=== PATIENT | female | born 1940 | race Caucasian/White ===

== ENCOUNTER 2018-07-12 17:46 | Observation (INO) | payer MEDICARE, MEDICAID ==
[2018-07-12 19:33] LABS: Troponin I 0.011 ng/mL (< 0.028)
[2018-07-12 22:04] LABS: Troponin I 0.013 ng/mL (< 0.028)
[2018-07-12] MEDS ORDERED: rOPINIRole HCl 1 MG TAB PO SCH (22:45)
[2018-07-12] MEDS ORDERED: Gabapentin 100 MG CAP PO SCH (22:45)
[2018-07-12] MEDS ORDERED: Torsemide 20 MG TAB PO SCH (22:45)
[2018-07-12] MEDS: traMADol HCl 50 MG TAB PO PRN (22:58)
[2018-07-13 01:32] LABS: Troponin I Less than 0.010 ng/mL (< 0.028)
--- NOTE | 2018-07-13 04:11 | HP ---
CHIEF COMPLAINT: Chest tightness. HISTORY OF PRESENT ILLNESS: Ms. Fernandez is a pleasant 77-year-old woman, who presents with complaints of tightness in her chest that started at some point earlier today with shortness of breath. She states she has been experiencing orthopnea and increased short of breath with exertion. She has a history of congestive heart failure and states that she monitors her sodium and water intake closely. Has not had any increased sodium intake or water intake in the last few days, but has noted a weight gain from 314 to 341 pounds over the course of two weeks. She has noted increased abdominal girth and bilateral lower extremity edema. The patient suffers from chronic issues with cellulitis affecting the bilateral legs and has wounds on the left lower leg due to weeping from edema. She has noted in the last couple of nights, increased discomfort and itching in the lower legs. Denies having any hemoptysis. No nausea or vomiting. Denies any abdominal pain. No urinary symptoms or bowel changes. Of note, the patient is known to Dr. Guerrero. REVIEW OF SYSTEMS: All other review of systems are negative. PAST MEDICAL HISTORY: 1. Hypertension. 2. High cholesterol. 3. Hypothyroidism. 4. Diabetes. 5. Atrial fibrillation. 6. CHF. 7. Frozen right shoulder. 8. CKD. PAST SURGICAL HISTORY: 1. Bilateral cataract surgery. 2. Cholecystectomy. 3. Tubal ligation. SOCIAL HISTORY: The patient denies smoking. No alcohol use or illicit drug use. ALLERGIES: 1. CLINDAMYCIN. 2. DIPHENHYDRAMINE. 3. METHYLPHENIDATE. 4. PENICILLINS. 5. SULFA. CURRENT MEDICATIONS: 1. Cholecalciferol. 2. Fish oil. 3. Glimepiride. 4. Metformin. 5. Metoprolol. 6. Ondansetron. 7. MiraLAX. 8. Potassium chloride. 9. Docusate. 10. Gabapentin. 11. Levothyroxine. 12. Linaclotide. 13. Pravastatin. 14. Ropinirole. 15. Sitagliptin. 16. Spironolactone. 17. Tizanidine. 18. Torsemide. 19. Tramadol. 20. Warfarin. PHYSICAL EXAMINATION: GENERAL: The patient is obese and well developed. She is in no acute distress. VITAL SIGNS: Temperature 97.6, pulse 52, respirations 18, O2 saturation on room air, and blood pressure 103/53. HEENT: Normocephalic and atraumatic. Pupils are equal, round, and reactive to light. Sclerae without icterus. Oropharynx is clear. NECK: Supple. LUNGS: With decreased breath sounds bilaterally at the bases. No crackles or rales. CARDIAC: Regular rate and rhythm. ABDOMEN: Obese, soft, nondistended but increased abdominal girth as per patient. No edema. No guarding or rigidity. EXTREMITIES: Notable for bilateral lower leg edema with erythema, more prominent on the right lower leg than the left. No weeping at present. NEUROLOGIC: Alert and oriented x3. LABORATORY DATA: White blood count 5.4, hemoglobin 12.3, hematocrit 39.4, and platelets 167. Sodium 135, potassium 3.8, anion gap 14, BUN 24, creatinine 1.29, GFR 40, glucose 124, calcium 9.3, total bilirubin 0.7, AST 32, ALT 29, alkaline phosphatase 141, and CK 67. Troponin negative x3. BNP 209.6, albumin 3.7, and lipase 35. IMAGING DATA: Chest x-ray; heart enlarged. No clear vascular congestion or large effusion present. Lungs seem clear. IMPRESSION AND PLAN: Ms. Fernandez is a 77-year-old woman, who is being admitted for management of the following; 1. Chest tightness with shortness of breath. The patient with known history of congestive heart failure, who has noted significant increase in weight over the last 2 weeks with progressive increased abdominal girth and bilateral lower leg edema. Congestive heart failure exacerbation suspected. Chest x-ray clear and no evidence of rales on exam. Troponins are negative x3. BNP 209.6. Unclear when her last echocardiogram was. We will obtain an echo. We will resume her torsemide, which she takes at home, 60 mg by mouth twice daily. We will obtain a D-dimer. If elevated, have further imaging to rule out pulmonary embolism. Sats are . Continue to monitor. Heart rate normal. 2. Right lower leg cellulitis. The patient suffers from chronic infections with cellulitis. At present, she has bilateral lower leg edema, but the right leg appears more erythematous than the left. We will initiate antibiotics and continue to monitor. At present time, white count is normal and she is afebrile. We will add on lactic acid and procalcitonin to her laboratory studies. 3. Type 2 diabetes mellitus. We will resume home medications and monitor glucose. Initiate insulin sliding scale. 4. Hypertension. Resume home medications and monitor blood pressure. 5. Chronic atrial fibrillation. The patient on anticoagulation. We will resume home medications including Coreg. 6. Hypothyroidism. Resume home medications. 7. Gastrointestinal prophylaxis. 8. Deep venous thrombosis prophylaxis. The patient already on anticoagulation for atrial fibrillation. KELLIE hose stockings. 9. Full code status. Her surrogate decision maker is Blanca Fernandez, her daughter. The patient's case was discussed with Dr. Kamara, who agrees with plan of care as described above. Job ID: [id number]
[2018-07-13] MEDS: Vancomycin HCl 1.75 GM in Sodium Chloride 0.9% 500 ML IVPB SCH (04:51)
[2018-07-13] MEDS ORDERED: (Linaclotide [Linzess] 290 MCG) PO SCH (07:30)
[2018-07-13] MEDS: Spironolactone 25 MG TAB PO SCH (08:33)
[2018-07-13] MEDS: Docusate 100 MG CAP PO SCH (08:33)
[2018-07-13] MEDS: Alogliptin 25 MG TAB PO SCH (08:34)
[2018-07-13] MEDS: Gabapentin 100 MG CAP PO SCH ×2 (08:34→20:38)
[2018-07-13] MEDS: Levothyroxine Sodium 25 MCG TAB PO SCH (08:35)
[2018-07-13] MEDS: Torsemide 20 MG TAB PO SCH ×2 (08:36→20:36)
[2018-07-13] MEDS ORDERED: Vancomycin HCl 1 GM in Premix Bag 1 BAG IVPB SCH (09:00)
[2018-07-13] MEDS: traMADol HCl 50 MG TAB PO PRN (10:01)
[2018-07-13] MEDS: rOPINIRole HCl 1 MG TAB PO SCH ×2 (10:02→20:37)
--- NOTE | 2018-07-13 15:23 | NM ---
VQ SCAN: HISTORY: Bilateral lower extremity edema. Chest pain. Elevated D-dimer. RADIOPHARMACEUTICAL: 14.5 mCi Xenon 133 by inhalation for the ventilation study followed by the intravenous administration of 6 mCi Technetium 99m-MAA for the perfusion scan. COMPARISON: Correlation is made with the portable chest radiograph of the previous day. FINDINGS: Homogeneous tracer distribution is seen in the lung mahmood bilaterally on the ventilation perfusion s can without mismatched pleural-based wedge-shaped segmental or subsegmental perfusion defects. IMPRESSION: Normal exam. POS: OFF
[2018-07-13] MEDS: Acetaminophen 325 MG TAB PO PRN (16:31)
--- NOTE | 2018-07-13 16:49 | PDOC.PN ---
- Subjective Encounter Start Date: 07/13/18 Encounter Start Time: 16:46 Patient lying in bed, she reports feeling better. Denies any chest pain, palpitations, abdominal pain. Echo shows preserved EF. Patient claims she gained 30 pounds but looking at old records she was similar weight at last admission. - Objective MAR Reviewed: Yes Vital Signs & Weight: Vital Signs (12 hours) Temp Pulse Resp BP Pulse Ox 07/13/18 15:32 97.5 F L 70 16 125/59 L 98 07/13/18 11:32 97.3 F L 80 16 138/63 94 L 07/13/18 07:57 98.3 F 88 16 120/58 L 96 Weight Weight 339 lb I&O: 07/12/18 07/13/18 07/14/18 06:59 06:59 06:59 Output Total 1800 550 Balance -1800 -550 Additional Labs: Accuchecks 07/13/18 07/13/18 07/12/18 10:16 05:04 20:04 POC Glucose 102 90 130 H Radiology Reviewed by me: Yes Phys Exam - Physical Examination Constitutional: NAD HEENT: moist MMs, oral pharynx no lesions Neck: supple Respiratory: no wheezing, clear to auscultation bilateral Cardiovascular: RRR, no significant murmur Gastrointestinal: soft, positive bowel sounds Musculoskeletal: pulses present Lymphedema noted bilateral lower extremities Neurological: non-focal, moves all 4 limbs Psychiatric: normal affect, A&O x 3 Skin: normal turgor Dx/Plan (1) Lymphedema of both lower extremities Code(s): I89.0 - LYMPHEDEMA, NOT ELSEWHERE CLASSIFIED Status: Acute (2) Obese Code(s): E66.9 - OBESITY, UNSPECIFIED Status: Acute (3) DM (diabetes mellitus) type II, controlled, with peripheral vascular disorder Code(s): E11.51 - TYPE 2 DIABETES W DIABETIC PERIPHERAL ANGIOPATH W/O GANGRENE Status: Chronic (4) Venous insufficiency (chronic) (peripheral) Status: Chronic - Plan cont current plan of care * Wound care consulted for lymphedema * Echo shows preserved EF * Continue home medications * White count and vitals unremarkable * D-dimer slightly elevated, but VQ showing no PE * Monitor overnight and likely discharge tomorrow with continued wound care for chronic lymphedema
[2018-07-13] MEDS ORDERED: Warfarin Sodium 5 MG TAB PO SCH (17:00)
[2018-07-13] MEDS ORDERED: hydrOXYzine 10 MG TAB PO SCH (20:15)
[2018-07-13] MEDS ORDERED: Pravastatin Sodium 20 MG TAB PO SCH (21:00)
[2018-07-13] MEDS ORDERED: tiZANidine HCl 4 MG TAB PO SCH (21:00)
[2018-07-14] MEDS: Levothyroxine Sodium 25 MCG TAB PO SCH (05:01)
[2018-07-14] MEDS: Acetaminophen 325 MG TAB PO PRN ×2 (05:01→10:49)
[2018-07-14] MEDS: Vancomycin HCl 1.75 GM in Sodium Chloride 0.9% 500 ML IVPB SCH (05:07)
[2018-07-14] MEDS: rOPINIRole HCl 1 MG TAB PO SCH (09:30)
[2018-07-14] MEDS: Docusate 100 MG CAP PO SCH (09:30)
[2018-07-14] MEDS: Spironolactone 25 MG TAB PO SCH (09:31)
[2018-07-14] MEDS: Alogliptin 25 MG TAB PO SCH (09:31)
[2018-07-14] MEDS: Gabapentin 100 MG CAP PO SCH (09:31)
[2018-07-14] MEDS: Torsemide 20 MG TAB PO SCH (09:31)
[2018-07-14 11:23] VITALS: TEMP 97.7
[2018-07-14 12:20] VITALS: BP 117/61
[2018-07-14 13:03] LABS: #Eosinphils 0.1 thou/uL (0.0-0.7); #Monocytes 0.5 thou/uL (0.11-0.59); %Basophils 0.5 % (0.0-1.0); %Eosinophils 2.1 % (0.0-10.0); %Monocytes 8.6 % (0.0-10.0); %Neutrophils 70.8 % (42.0-75.0); Hemoglobin 11.9 g/dL (12.0-16.0); Mean Corpuscular HGB CONC 32.6 g/dL (32.0-36.0); Mean Corpuscular Hemoglobin 28.5 pg (27.0-31.0); Mean Corpuscular Volume 87.6 fL (78.0-98.0); Mean Platelet Volume 8.2 fL (7.4-10.4); Platelet Count 164 thou/uL (130-400); RBC Distribution Width 14.5 % (11.5-14.5); Red Blood Cell (RBC) Count 4.16 mill/uL (4.20-5.40); White Blood Cell (WBC) Count 5.6 thou/uL (4.8-10.8)
[2018-07-14 13:22] LABS: ALT (SGPT) 24 U/L (8-55); AST (SGOT) 32 U/L (5-34); Albumin 3.5 g/dL (3.4-4.8); Alkaline Phosphatase 133 U/L (40-150); Anion Gap 10 mmol/L (10-20); BUN (Urea Nitrogen) 23 mg/dL (9.8-20.1); Calc. Creatinine Clearance 101 mL/min (70-130); Calcium 9.1 mg/dL (7.8-10.44); Carbon Dioxide 30 mmol/L (23-31); Chloride 99 mmol/L (98-107); Estimated GFR-MDRD 45; Globulin 4.2 g/dL (2.4-3.5); Glucose 174 mg/dL (83-110); Potassium 3.6 mmol/L (3.5-5.1); Protein, Total 7.7 g/dL (6.0-8.3); Sodium 135 mmol/L (136-145)
[2018-07-14 14:14] VITALS: BMI 47.3
[2018-07-14] MEDS ORDERED: Warfarin Sodium 7.5 MG TAB PO SCH (17:00)
== END 2018-07-14 15:25 | disposition home or self-care (01) ==
LOC: ERS 17:46 → 2SW 19:40
PROVIDERS: ADMIT Internal Medicine; ATTEND Internal Medicine
DX: R07.89 Other chest pain (principal); R06.02 Shortness of breath; I13.0 Hypertensive heart and chronic kidney disease with heart failure and stage 1 through stage 4 chronic kidney disease, or unspecified chronic kidney disease; E11.22 Type 2 diabetes mellitus with diabetic chronic kidney disease; N18.9 Chronic kidney disease, unspecified; I50.9 Heart failure, unspecified; E78.00 Pure hypercholesterolemia, unspecified; E03.9 Hypothyroidism, unspecified; L03.116 Cellulitis of left lower limb; I48.2 Chronic atrial fibrillation; Z88.0 Allergy status to penicillin; Z88.1 Allergy status to other antibiotic agents; Z88.2 Allergy status to sulfonamides; Z88.8 Allergy status to other drugs, medicaments and biological substances; Z79.84 Long term (current) use of oral hypoglycemic drugs; Z79.899 Other long term (current) drug therapy
CPT/HCPCS: 78582; 80053; 82962 ×3; 84484 ×2; 85025; 85379; 93306; 96365; 96376; 97139 ×2; 99285; A9540; A9558; G0378 ×2; 36415; 36416; J3370; J7050

== ENCOUNTER 2019-07-17 23:02 | Inpatient (IN) | payer MEDICARE, MEDICAID ==
[2019-07-17] MEDS ORDERED: Diltiazem 125 MG/25 ML ONE (23:13)
--- NOTE | 2019-07-17 23:44 | PDOC.HHP ---
Hospitalist HPI - History of Present Illness Bilateral leg swelling History of Present Illness: Patient is a 78 year old female with PMH HTN, afib, DM, hypothyroidism, CHF, cataracts who presents to ER via EMS with c/o BLE rash that began 2 weeks ago as a transfer from [place]. Pt reports pain and redness, as well as PMHx of numerous other episodes of cellulitis. She was transferred from [place] after being given vancomycin and diltiazem. She was noted to be in afib w/ RVR and takes coumadin, was given diltiazem at outside facility which helped to control rate. She takes torsemide 100mg PO BID and reports that she has been experiencing swelling and weight gain and wosening of chronic GEORGE despite diuretic compliance. She has chronic weeping from lower extremities which is worse as well, was recently discharged from Rehab and had been at home with no issues unti this happened. She had a similar episode admitted in february 2019 in which she improved with IV vancomycin and IV lasix. ED Course: VITAL SIGNS MonJuly 17, 2019 23:11 SUSU [place] BP: 125/72 (Sitting) MAP: 89 Pulse: 86 (Irregular) Resp: 14 (Non-Labored) Temp: 98.4 (Oral) Pain: 0 O2 sat: 98 on (Room Air) Time: 07/17/2019 23:11. CURRENT MEDICATIONS spironolactone MonJuly 17, 2019 23:39 SUSU [place] tablet : Strength - 50 mg : ORAL Patient Dose: Unknown. rOPINIRole MonJuly 17, 2019 23:39 SUS[facility] [place] tablet : Strength - 3 mg : ORAL Patient Dose: Unknown. warfarin MonJuly 17, 2019 23:39 SUS[facility] [place] tablet : Strength - 6 mg : ORAL Patient Dose: Unknown. potassium MonJuly 17, 2019 23:40 SUS[facility] [place] tablet : Strength - 75 mg : ORAL Patient Dose: 20 mEq Oral once a day (in the morning). levothyroxine oral MonJuly 17, 2019 23:41 SUSU [facility] [place] tablet : Strength - 100 mcg : ORAL Patient Dose: 50mcg mcg Oral once a day (in the morning). Hospitalist ROS - Review of Systems Constitutional: denies: fever, chills, sweats, weakness, malaise, other Eyes: denies: pain, vision change, conjunctivae inflammation, eyelid inflammation, redness, other ENT: denies: ear pain, ear discharge, nose pain, nose discharge, nose congestion , mouth pain, mouth swelling, throat pain, throat swelling, other Respiratory: reports: cough, SOB with excertion. denies: dry, shortness of breath, hemoptysis, pleuritic pain, sputum, wheezing, other Cardiovascular: denies: chest pain, palpitations, orthopnea, paroxysmal noc. dyspnea, edema, light headedness, other Gastrointestinal: denies: nausea, vomiting, abdominal pain, diarrhea, constipation, melena, hematochezia, other Genitourinary: denies: dysuria, frequency, incontinence, hematuria, retention, other Musculoskeletal: reports: leg pain Skin: reports: rash, lesions, other (swelling, lymphedema, erythema bilateral lower extremities) Neurological: denies: weakness, numbness, incoordination, change in speech, confusion, seizures, other All other systems reviewed; all pertinent +/- noted in HPI/Subj Hospitalist History - Past Medical History Other Medical History: HTN, afib, DM, hypothyroidism, CHF, cataracts - Past Surgical History Other Surgical History: cholecystectomy, tubal ligation, cataract surgery - Family History Family History: reports: no pertinent history - Social History Smoking Status: Never smoker Alcohol: reports: None Drugs: reports: none - Exam General Appearance: NAD, awake alert Eye: PERRL, anicteric sclera ENT: normocephalic atraumatic, no oropharyngeal lesions, moist mucosa Neck: supple, symmetric, no JVD, no thyromegaly, no lymphadenopathy, no carotid bruit Heart: RRR, no murmur, no gallops, no rubs, normal peripheral pulses Respiratory: CTAB, no wheezes, no rales, no ronchi, normal chest expansion, no tachypnea, normal percussion Gastrointestinal: soft, non-tender, non-distended, normal bowel sounds, no palpable masses, no hepatomegaly, no splenomegaly, no bruit Extremities: no cyanosis, no clubbing, 2+ LE edema Skin: normal turgor, no lesions Skin - other findings: bilateral edema and patchy erythema bilateral legs to thigh Neurological: cranial nerve grossly intact, normal sensation to touch, no weakness, no focal deficits, no new deficit Musculoskeletal: normal tone, normal strength, no muscle wasting Psychiatric: normal affect, normal behavior, A&O x 3 Hospitalist Results - Labs Additional comment: outside records reviewed INR 1.9 normal WBC hgb 11.8 lactic acid 2.4 EKG reviewed from [facility] afib [address] changes - EKG Interpretation EKG: Rate [address] changes or dropped beats Hospitalist H&P A/P - Plan Plan: Patient is a 78 year old female with PMH HTN, afib, DM, hypothyroidism, CHF, cataracts who presents to ER via EMS with c/o BLE rash that began 2 weeks ago as a transfer from [place] # bilateral lower extremity cellulitis # chronic lymphedema - admit to floor - blood cultures - IV vancomycin # acute and chronic congestive heart failure - increase to IV lasix - intake and output monitoring - resume home meds once med rec complete - she had echo within last year or so with preserved EF - defer to PCP for chronic medication management # atrial fibrillation - rate controlled now after diltiazem at outside facility, continue diuresis and antibiotics and control rate as needed if worsens again - pharmacy consult for coumadin dosing, continue coumadin # lower extremity wounds - PT, OT, wound care consults # DM - continue home regimen, SSI ordered # hypothyroidism - continue synthroid # HLD - continue statin # HTN - PRN medications, continue home meds # CKD 3 - noted, diurese as above, trend BMP DVT, GI ppx Full code
[2019-07-18] MEDS ORDERED: Labetalol HCl 100 MG/20 ML VIAL SLOW IVP PRN (00:13)
[2019-07-18] MEDS ORDERED: Morphine 2 MG/ML SYRINGE SLOW IVP PRN (00:13)
[2019-07-18] MEDS ORDERED: Ondansetron PF 4 MG/2 ML Vial IVP PRN (00:13)
[2019-07-18] MEDS ORDERED: hydrALAZINE 20 MG/ML VIAL SLOW IVP PRN (00:13)
[2019-07-18] MEDS ORDERED: Promethazine HCl 12.5 MG in Sodium Chloride 0.9% 50 ML IVPB PRN (00:13)
[2019-07-18] MEDS ORDERED: cloNIDine 0.1 MG TAB PO PRN (00:13)
[2019-07-18] MEDS ORDERED: Acetaminophen 325 MG TAB PO PRN (00:15)
[2019-07-18] MEDS ORDERED: Dextrose 50% Abboject 50 ML SYRINGE SLOW IVP PRN (00:15)
[2019-07-18] MEDS ORDERED: Dextrose 5% in Water 1,000 ML IV PRN (00:15)
[2019-07-18] MEDS ORDERED: Senokot S 8.6-50 MG TAB PO PRN (00:15)
[2019-07-18] MEDS ORDERED: Bisacodyl 5 MG TAB PO PRN (00:15)
[2019-07-18] MEDS ORDERED: Guaifenesin DM 100-10/5 ML UDCUP PO PRN (00:15)
[2019-07-18 00:34] LABS: Troponin I 0.012 ng/mL (< 0.028)
[2019-07-18] MEDS: Diltiazem HCl 125 MG, Admixture Fee 1 EACH in Sodium Chloride 0.9% 100 ML IVPB SCH ×2 (02:59→16:22)
[2019-07-18] MEDS: Vancomycin 1.5 GRAM/300 ML BAG 1.5 GM in Premix Bag 1 BAG IVPB SCH ×2 (04:07→16:23)
[2019-07-18 04:12] LABS: #Basophils 0.1 thou/uL (0.0-0.2); #Eosinphils 0.2 thou/uL (0.0-0.7); #Lymphocytes 1.2 thou/uL (1.20-3.40); %Basophils 0.9 % (0.0-1.0); %Eosinophils 2.1 % (0.0-10.0); %Lymphocytes 16.3 % (21.0-51.0); %Monocytes 13.1 % (0.0-10.0); %Neutrophils 67.7 % (42.0-75.0); Hemoglobin 11.2 g/dL (12.0-16.0); Mean Corpuscular HGB CONC 31.1 g/dL (32.0-36.0); Mean Platelet Volume 7.9 fL (7.4-10.4); Platelet Count 222 thou/uL (130-400); RBC Distribution Width 14.8 % (11.5-14.5); Red Blood Cell (RBC) Count 3.98 mill/uL (4.20-5.40); White Blood Cell (WBC) Count 7.4 thou/uL (4.8-10.8)
[2019-07-18 04:18] LABS: INR-International Normal Ratio 2.1; Prothrombin Time 23.2 sec (12.0-14.7)
[2019-07-18 04:35] LABS: Anion Gap 12 mmol/L (10-20); BUN (Urea Nitrogen) 25 mg/dL (9.8-20.1); Calc. Creatinine Clearance 105 mL/min (70-130); Calcium 8.9 mg/dL (7.8-10.44); Carbon Dioxide 25 mmol/L (23-31); Chloride 99 mmol/L (98-107); Estimated GFR-MDRD 48; Glucose 169 mg/dL (83-110); Magnesium 2.3 mg/dL (1.6-2.6); Potassium 4.3 mmol/L (3.5-5.1); Sodium 132 mmol/L (136-145)
[2019-07-18 04:40] LABS: Troponin I 0.013 ng/mL (< 0.028)
[2019-07-18] MEDS: HumaLOG 300 UNITS/3 ML VIAL SC PRN ×3 (06:24→17:34)
[2019-07-18] MEDS: Polyethylene Glycol 3350 17 GM Packet PO SCH (09:11)
[2019-07-18] MEDS: HYDROcodone/Acetaminophen 5/325 mg Tablet PO PRN ×2 (11:37→21:17)
[2019-07-18] MEDS: Warfarin Sodium 3 MG TAB PO SCH (16:22)
[2019-07-18] MEDS ORDERED: traMADol HCl 50 MG TAB PO PRN (16:48)
[2019-07-18] MEDS ORDERED: Warfarin Sodium 7.5 MG TAB PO SCH (17:00)
[2019-07-18] MEDS: Metoprolol Tartrate 25 MG TAB PO SCH (20:19)
[2019-07-18] MEDS: Gabapentin 300 MG CAP PO SCH (20:19)
--- NOTE | 2019-07-19 01:10 | CON ---
DATE OF CONSULTATION: HISTORY OF PRESENT ILLNESS: Ms. Fernandez is a 78-year-old white female, who has been evaluated by Dr. Guerrero in the past. She was seen in the office in March 2018, for evaluation of lower extremity edema and limb pain. She has had cellulitis intermittently over the last 10 years. She also has history of chronic atrial fibrillation and is on chronic anticoagulation with warfarin. She underwent evaluation with an echocardiogram, which revealed ejection fraction of 50% to 55 % with mild mitral and tricuspid regurgitation. She had evidence for diastolic dysfunction. She underwent cardiac PET scan which revealed the study was probably abnormal with mild ischemia along the distal anterior wall and apex. Lower extremity venous duplex was performed with no evidence of deep venous thrombosis and no venous reflux. She returned for followup and discussion was held with physician financial assistant regarding poor her compliance with salt and fluid restriction. She was to return one month later for followup with Dr. Guerrero; however, she never returned. She now is admitted after transfer from [facility]. She went there for increased pain and edema of her legs. She had mild shortness of breath and denies any chest discomfort. She was found to be in atrial fibrillation with mildly elevated rates and was placed on Cardizem drip. PAST MEDICAL HISTORY: Chronic atrial fibrillation, diastolic heart failure, hypertension, hyperlipidemia, hypothyroidism, diabetes. PAST SURGICAL HISTORY: Cholecystectomy, tubal ligation, cataract surgery. She also apparently has had a cardiac catheterization by Dr. Marcus in [place] with finding of mild coronary artery disease. However, I do not have that specific information. MEDICATIONS: 1. Fish oil 1000 mg daily. 2. Neurontin 300 mg t.i.d. 3. Insulin. 4. Levothyroxine 25 mcg daily. 5. Linzess 290 mcg daily. 6. Magnesium oxide 400 daily. 7. Glucophage 500 b.i.d. 8. Metoprolol 25 b.i.d. 9. Zofran p.r.n. 10. MiraLAX b.i.d. 11. KCl 40 mEq t.i.d. 12. Requip 4 mg t.i.d. 13. Torsemide 60 mg daily and 40 mg q.p.m. 14. Spironolactone 25 t.i.d. 15. Coumadin 6 mg daily. 16. Ultram p.r.n. ALLERGIES: CLINDAMYCIN, BENADRYL, RITALIN, PENICILLIN, AND SULFA. SOCIAL HISTORY: She does not smoke or drink. FAMILY HISTORY: Negative for coronary artery disease. REVIEW OF SYSTEMS: A 10-point review of systems is otherwise unremarkable. PHYSICAL EXAMINATION: VITAL SIGNS: Blood pressure 101/68, pulse of 82 and irregularly irregular. HEENT: PERRL. NECK: Supple. CHEST: Clear. CARDIAC: S1 and S2 normal without any S3, S4, or murmurs. ABDOMEN: Obese. Normal bowel sounds. No tenderness. EXTREMITIES: Revealed 2+ edema with significant erythema of both lower extremities, warm to the touch. NEUROLOGIC: Grossly intact. LABORATORY DATA: EKG reveals atrial fibrillation with nonspecific ST-segment changes, rate of 103. Hemoglobin 11.2, hematocrit 35.8, white count 7400, platelets 222,000. INR 2.1. Sodium 132, potassium 4.3, chloride 99, carbon dioxide 25, BUN 25, creatinine 1.10. Troponin I is normal x2. IMPRESSION: 1. Chronic atrial fibrillation with slightly elevated rate at this time, probably due to failure and infectious process in her lower extremities. 2. Mild coronary artery disease, reportedly on previous catheterization in [place]. 3. Acute on chronic diastolic heart failure. 4. Hypertension. 5. Hyperlipidemia. 6. Diabetes. 7. Lower extremity cellulitis. 8. Hypothyroidism. 9. Chronic kidney disease. PLAN: The patient has been started on vancomycin. She has been treated with intravenous diuretics. She is on Cardizem drip for better rate control. Her Cardizem probably can be tapered and discontinued over the next 24 hours. Echocardiogram will be performed to reassess left ventricular function. Job ID: [id number] [facility]
[2019-07-19 04:36] LABS: INR-International Normal Ratio 2.1; Prothrombin Time 23.6 sec (12.0-14.7)
[2019-07-19 04:37] LABS: #Basophils 0.1 thou/uL (0.0-0.2); #Eosinphils 0.2 thou/uL (0.0-0.7); #Lymphocytes 1.1 thou/uL (1.20-3.40); #Monocytes 0.9 thou/uL (0.11-0.59); #Neutrophils 4.4 thou/uL (1.40-6.50); %Basophils 0.9 % (0.0-1.0); %Eosinophils 3.1 % (0.0-10.0); %Lymphocytes 16.5 % (21.0-51.0); %Monocytes 13.2 % (0.0-10.0); %Neutrophils 66.4 % (42.0-75.0); Hemoglobin 11.3 g/dL (12.0-16.0); Mean Corpuscular Hemoglobin 28.3 pg (27.0-31.0); Mean Corpuscular Volume 91.1 fL (78.0-98.0); Platelet Count 212 thou/uL (130-400); RBC Distribution Width 14.8 % (11.5-14.5); White Blood Cell (WBC) Count 6.6 thou/uL (4.8-10.8)
[2019-07-19 04:49] LABS: Anion Gap 14 mmol/L (10-20); BUN (Urea Nitrogen) 27 mg/dL (9.8-20.1); Calc. Creatinine Clearance 97 mL/min (70-130); Calcium 8.4 mg/dL (7.8-10.44); Carbon Dioxide 22 mmol/L (23-31); Chloride 101 mmol/L (98-107); Estimated GFR-MDRD 44; Glucose 219 mg/dL (83-110); Magnesium 2.5 mg/dL (1.6-2.6); Potassium 4.3 mmol/L (3.5-5.1); Sodium 133 mmol/L (136-145)
[2019-07-19 05:14] LABS: Vancomycin, Trough 41.9 ug/mL
[2019-07-19] MEDS: Levothyroxine Sodium 25 MCG TAB PO SCH (06:08)
[2019-07-19] MEDS: HumaLOG 300 UNITS/3 ML VIAL SC PRN ×3 (06:09→17:56)
[2019-07-19] MEDS: Vancomycin 1.5 GRAM/300 ML BAG 1.5 GM in Premix Bag 1 BAG IVPB SCH (06:47)
[2019-07-19] MEDS: Metoprolol Tartrate 25 MG TAB PO SCH (08:28)
[2019-07-19] MEDS: Polyethylene Glycol 3350 17 GM Packet PO SCH (08:28)
[2019-07-19] MEDS: Gabapentin 300 MG CAP PO SCH ×3 (08:28→20:35)
[2019-07-19] MEDS ORDERED: Furosemide 40 MG/4 ML VIAL IVP SCH (14:45)
[2019-07-19] MEDS: HYDROcodone/Acetaminophen 5/325 mg Tablet PO PRN (16:16)
[2019-07-19 16:24] LABS: Vancomycin, Random 34.7 ug/mL (See Comment)
--- NOTE | 2019-07-19 16:47 | PDOC.HOSPP ---
- Subjective Encounter Date: 07/19/19 Subjective: The patient is complaining of shortness of breath especially when she lays down. Lower extremity pain and swelling are improving. - Objective Vital Signs & Weight: Vital Signs (12 hours) Temp Pulse Pulse Pulse Resp BP BP 07/19/19 16:00 97.8 F 95 18 07/19/19 11:28 98.3 F 86 20 07/19/19 09:50 94 83 134/62 137/63 07/19/19 08:13 98.4 F 100 18 BP Pulse Ox Pulse Ox Pulse Ox 07/19/19 16:00 130/62 95 07/19/19 11:28 137/62 96 07/19/19 09:50 90 L 96 07/19/19 08:13 141/67 H 96 Weight Admit Weight 337 lb 12.8 oz Weight 337 lb 12.8 oz I&O: 07/18/19 07/19/19 07/20/19 06:59 06:59 06:59 Intake Total 1142 540 Output Total 600 400 Balance 542 140 Result Diagrams: 07/19/19 04:08 07/19/19 04:08 Additional Labs: Accuchecks 07/19/19 07/19/19 07/18/19 11:03 06:01 20:26 POC Glucose 323 H 201 H 278 H 07/18/19 16:45 POC Glucose 236 H Hospitalist ROS - Medication Medications: Active Medications Generic Name Dose Route Start Last Admin Trade Name Freq PRN Reason Stop Dose Admin Hydrocodone Bitart/Acetaminophen 1 tab 07/18/19 00:15 07/19/19 16:16 Remington 5/325 PO 1 tab Q4H PRN Administration Moderate Pain (4-6) Furosemide 40 mg 07/19/19 14:45 07/19/19 15:29 Lasix IVP 07/19/19 17:00 40 mg NOW SUNDAY Administration Gabapentin 300 mg 07/18/19 21:00 07/19/19 15:29 Neurontin PO 300 mg TID SUNDAY Administration Insulin Human Lispro 0 units 07/18/19 00:15 07/19/19 11:56 Humalog SC 8 unit .MODERATE SLIDING SC PRN Administration Moderate Correctional Scale Levothyroxine Sodium 25 mcg 07/19/19 06:00 07/19/19 06:08 Synthroid PO 25 mcg 0600 SUNDAY Administration Morphine Sulfate 2 mg 07/18/19 00:13 07/18/19 02:57 Morphine SLOW IVP 2 mg Q4H PRN Administration severe pain 4-10 Pantoprazole Sodium 40 mg 07/18/19 09:00 07/19/19 08:28 Protonix PO 40 mg DAILY SUNDAY Administration Polyethylene Glycol 17 gm 07/18/19 09:00 07/19/19 08:28 Miralax PO 17 gm DAILY SUNDAY Administration Sodium Chloride 10 ml 07/18/19 09:00 07/19/19 08:28 Flush - Normal Saline IVF 10 ml Q12HR SUNDAY Administration Tramadol HCl 50 mg 07/18/19 16:48 07/18/19 17:34 Ultram PO 50 mg Q6H PRN Administration Pain 4-6 Warfarin Sodium 6 mg 07/18/19 17:00 07/18/19 16:22 Coumadin PO 6 mg DAILY@1700 SUNDAY Administration - Exam General Appearance: awake alert Neck: supple Heart: RRR Respiratory: rhonchi Gastrointestinal: soft, non-tender Skin - other findings: Edema and redness of her lower extremities bilaterally. Neurological: cranial nerve grossly intact, no focal deficits Hosp A/P (1) Atrial fibrillation with rapid ventricular response Code(s): I48.91 - UNSPECIFIED ATRIAL FIBRILLATION Status: Acute (2) Cellulitis of both lower extremities Code(s): L03.115 - CELLULITIS OF RIGHT LOWER LIMB; L03.116 - CELLULITIS OF LEFT LOWER LIMB Status: Acute (3) Diastolic congestive heart failure Code(s): I50.30 - UNSPECIFIED DIASTOLIC (CONGESTIVE) HEART FAILURE Status: Acute (4) Venous hypertension of both lower extremities Code(s): I87.303 - CHRONIC VENOUS HYPERTENSION W/O COMP OF BILATERAL LOW EXTRM Status: Acute (5) DM (diabetes mellitus) type II, controlled, with peripheral vascular disorder Code(s): E11.51 - TYPE 2 DIABETES W DIABETIC PERIPHERAL ANGIOPATH W/O GANGRENE Status: Chronic (6) Lymphedema of both lower extremities Code(s): I89.0 - LYMPHEDEMA, NOT ELSEWHERE CLASSIFIED Status: Chronic (7) Morbid obesity with BMI of 50.0-59.9, adult Code(s): E66.01 - MORBID (SEVERE) OBESITY DUE TO EXCESS CALORIES; Z68.43 - BODY MASS INDEX (BMI) 50.0-59.9, ADULT Status: Chronic - Plan Continue IV vancomycin for bilateral lower extremity cellulitis. A. fib with RVR with rate now controlled on Cardizem drip at rate of 5 mg/h. We will wean off the drip and start oral Cardizem today. Fluid balance has been negative. Continue IV diuresis.
[2019-07-19] MEDS ORDERED: Vancomycin 1.5 GRAM/300 ML BAG 1.5 GM in Premix Bag 1 BAG IVPB SCH ×2 (17:00→17:15)
[2019-07-19] MEDS: Digoxin 0.25 MG TAB PO SCH (17:55)
[2019-07-19] MEDS: Warfarin Sodium 3 MG TAB PO SCH (17:55)
--- NOTE | 2019-07-19 20:30 | PRG ---
DATE OF SERVICE: 07/19/2019 SUBJECTIVE: Ms. Fernandez's main complaint today is shortness of breath. She also complains of lower extremity pain. She is currently on antibiotic therapy. Her most recent echo showed normal LVEF. She has underlying atrial fibrillation. It is a chronic condition. She is on anticoagulation therapy at home for the above. OBJECTIVE: VITAL SIGNS: Blood pressure 137/62, pulse 86, respirations 20. LUNGS: Clear to auscultation. HEART: Irregularly irregular. ABDOMEN: Soft, nontender, nondistended. EXTREMITIES: Both lower extremities are bandaged. PERTINENT LABORATORY DATA: Hemoglobin 11.3, hematocrit 36.4, creatinine 1.19. BNP of 140. IMPRESSION: 1. Cellulitis. 2. Chronic atrial fibrillation. RECOMMENDATIONS: 1. Continue IV Cardizem at current dose. 2. Discontinue metoprolol. 3. Add p.o. Cardizem at 60 mg t.i.d. 4. Consider adding digoxin. 5. Add Lasix IV x1 dose. Job ID: [id number]
[2019-07-19] MEDS ORDERED: Diltiazem HCl SR 60 mg Capsule PO SCH (22:00)
[2019-07-20] MEDS: Digoxin 0.25 MG TAB PO SCH ×2 (00:11→05:13)
[2019-07-20] MEDS: Levothyroxine Sodium 25 MCG TAB PO SCH (05:12)
[2019-07-20] MEDS: HumaLOG 300 UNITS/3 ML VIAL SC PRN ×3 (06:12→22:08)
[2019-07-20 06:56] LABS: #Eosinphils 0.1 thou/uL (0.0-0.7); #Lymphocytes 0.9 thou/uL (1.20-3.40); #Monocytes 1.2 thou/uL (0.11-0.59); #Neutrophils 7.9 thou/uL (1.40-6.50); %Basophils 0.3 % (0.0-1.0); %Eosinophils 0.7 % (0.0-10.0); %Lymphocytes 8.9 % (21.0-51.0); %Monocytes 11.9 % (0.0-10.0); %Neutrophils 78.3 % (42.0-75.0); Hemoglobin 11.1 g/dL (12.0-16.0); Mean Corpuscular HGB CONC 31.7 g/dL (32.0-36.0); Mean Corpuscular Hemoglobin 28.5 pg (27.0-31.0); Mean Corpuscular Volume 90.2 fL (78.0-98.0); Mean Platelet Volume 7.7 fL (7.4-10.4); Platelet Count 201 thou/uL (130-400); RBC Distribution Width 14.8 % (11.5-14.5); Red Blood Cell (RBC) Count 3.88 mill/uL (4.20-5.40); White Blood Cell (WBC) Count 10.1 thou/uL (4.8-10.8)
[2019-07-20 07:03] LABS: INR-International Normal Ratio 2.1; Prothrombin Time 23.7 sec (12.0-14.7)
[2019-07-20 07:19] LABS: Anion Gap 14 mmol/L (10-20); BUN (Urea Nitrogen) 31 mg/dL (9.8-20.1); Calc. Creatinine Clearance 85 mL/min (70-130); Calcium 8.7 mg/dL (7.8-10.44); Carbon Dioxide 23 mmol/L (23-31); Chloride 101 mmol/L (98-107); Estimated GFR-MDRD 38; Glucose 279 mg/dL (83-110); Magnesium 2.4 mg/dL (1.6-2.6); Potassium 4.3 mmol/L (3.5-5.1); Sodium 134 mmol/L (136-145)
[2019-07-20] MEDS ORDERED: Furosemide 40 MG/4 ML VIAL SLOW IVP SCH (08:30)
[2019-07-20] MEDS: Polyethylene Glycol 3350 17 GM Packet PO SCH (08:48)
[2019-07-20] MEDS: Digoxin 0.125 MG TAB PO SCH (08:48)
[2019-07-20] MEDS: Gabapentin 300 MG CAP PO SCH ×3 (08:48→20:12)
--- NOTE | 2019-07-20 08:53 | PRG ---
DATE OF SERVICE: 07/20/2019 SUBJECTIVE: Ms. Fernandez states that she feels short of breath with minimal exertion and even at rest. She said this has been present for a couple of days, but maybe it is worse this morning. OBJECTIVE: VITAL SIGNS: Her blood pressure 144/64, pulse 104 and irregular. LUNGS: Some decreased breath sounds at the bases. CARDIAC: Irregularly irregular. ABDOMEN: Obese, nontender. EXTREMITIES: Moderate edema. LABORATORY DATA: Echocardiogram showed normal left ventricular systolic function. ASSESSMENT: 1. Shortness of breath, probably diastolic heart failure. 2. Worsening renal function with creatinine of 1.36. PLAN: 1. Give her additional dose of Lasix. 2. Reduce digoxin to 0.125 mg a day. 3. Continue to monitor closely. 4. She is on Coumadin for the atrial fibrillation anticoagulation. Job ID: [id number]
[2019-07-20 10:28] LABS: Vancomycin, Random 27.7 ug/mL (See Comment)
[2019-07-20] MEDS: Warfarin Sodium 3 MG TAB PO SCH (16:37)
[2019-07-20] MEDS: HumaLOG 300 UNITS/3 ML VIAL SC SCH (17:03)
--- NOTE | 2019-07-20 18:45 | PDOC.HOSPP ---
- Subjective Encounter Date: 07/20/19 Encounter Time: 10:00 Subjective: no overnight events. this morning, feels worse because short of breath on ambulation, whereas she wasn't initially after admission. Has no other complaints. - Objective Vital Signs & Weight: Vital Signs (12 hours) Temp Pulse Pulse Resp BP BP Pulse Ox 07/20/19 16:20 99 125/58 L 07/20/19 15:00 97.9 F 91 20 150/74 H 95 07/20/19 11:16 97.9 F 92 16 148/65 H 97 07/20/19 10:46 148/65 H 07/20/19 08:48 108 H 07/20/19 08:13 104 H 144/64 H 07/20/19 07:36 99.7 F H 104 H 20 144/64 H 95 Pulse Ox Pulse Ox 07/20/19 16:20 07/20/19 15:00 07/20/19 11:16 07/20/19 10:46 07/20/19 08:48 07/20/19 08:13 94 L 94 L 07/20/19 07:36 Weight Admit Weight 337 lb 12.8 oz Weight 338 lb I&O: 07/19/19 07/20/19 07/21/19 06:59 06:59 06:59 Intake Total 540 1140 480 Output Total 400 1500 251 Balance 140 -360 229 Result Diagrams: 07/20/19 06:45 07/20/19 06:45 Additional Labs: Accuchecks 07/20/19 07/20/19 07/20/19 16:20 11:07 05:34 POC Glucose 339 H 296 H 302 H 07/19/19 20:32 POC Glucose 236 H Hospitalist ROS - Review of Systems Constitutional: denies: fever, chills, sweats, weakness, malaise, other Respiratory: reports: cough, dry, shortness of breath, SOB with excertion. denies: hemoptysis, pleuritic pain, sputum, wheezing, other Cardiovascular: denies: chest pain, palpitations, orthopnea, paroxysmal noc. dyspnea, edema, light headedness, other Gastrointestinal: denies: nausea, vomiting, abdominal pain, diarrhea, constipation, melena, hematochezia, other - Medication Medications: Active Medications Generic Name Dose Route Start Last Admin Trade Name Freq PRN Reason Stop Dose Admin Hydrocodone Bitart/Acetaminophen 1 tab 07/18/19 00:15 07/19/19 16:16 [place] 5/325 PO 1 tab Q4H PRN Administration Moderate Pain (4-6) Digoxin 0.125 mg 07/20/19 09:00 07/20/19 08:48 Lanoxin PO 0.125 mg DAILY SUNDAY Administration Diltiazem HCl 30 mg 07/19/19 17:00 07/20/19 16:36 Cardizem PO 30 mg ACHS SUNDAY Administration Gabapentin 300 mg 07/18/19 21:00 07/20/19 14:54 Neurontin PO 300 mg TID SUNDAY Administration Guaifenesin/Dextromethorphan 15 ml 07/18/19 00:15 07/20/19 14:54 Robitussin Dm PO 15 ml Q4H PRN Administration Cough Insulin Human Lispro 0 units 07/18/19 00:15 07/20/19 11:35 Humalog SC 6 unit .MODERATE SLIDING SC PRN Administration Moderate Correctional Scale Insulin Human Lispro 5 units 07/20/19 17:00 07/20/19 17:03 Humalog SC 5 unit TID-WM SUNDAY Administration Levothyroxine Sodium 25 mcg 07/19/19 06:00 07/20/19 05:12 Synthroid PO 25 mcg 0600 SUNDAY Administration Morphine Sulfate 2 mg 07/18/19 00:13 07/18/19 02:57 Morphine SLOW IVP 2 mg Q4H PRN Administration severe pain 4-10 Pantoprazole Sodium 40 mg 07/18/19 09:00 07/20/19 08:48 Protonix PO 40 mg DAILY SUNDAY Administration Polyethylene Glycol 17 gm 07/18/19 09:00 07/20/19 08:48 Miralax PO 17 gm DAILY SUNDAY Administration Sodium Chloride 10 ml 07/18/19 09:00 07/20/19 08:48 Flush - Normal Saline IVF 10 ml Q12HR SUNDAY Administration Tramadol HCl 50 mg 07/18/19 16:48 07/18/19 17:34 Ultram PO 50 mg Q6H PRN Administration Pain 4-6 Warfarin Sodium 6 mg 07/18/19 17:00 07/20/19 16:37 Coumadin PO 6 mg DAILY@1700 [facility] Administration - Exam General Appearance: NAD, awake alert Eye: PERRL, anicteric sclera Neck: no JVD Heart: irregular Respiratory: no wheezes, no ronchi Respiratory - other findings: reduced breath sounds on right; inspiratory rales mid and lower mahmood b/l Gastrointestinal: soft, non-tender, non-distended, normal bowel sounds Extremities: 2+ LE edema Psychiatric: normal affect, normal behavior, A&O x 3 Hosp A/P - Plan HFpEF - hypervolumic, increased lasix dosing Stasis dermatitis - more likely than cellulitis; started moderate dose topical steroids, continue vanc for now, if responds to steroids will DC Throat pain- pharyngeal exudates on exam, likely viral, not satisfying criteria for workup of strep throat
[2019-07-20] MEDS ORDERED: Insulin Glargine 15 UNITS in Pre-Filled Syringe 1 EACH SC SCH (21:00)
[2019-07-20 21:30] LABS: Vancomycin, Random 25.1 ug/mL (See Comment)
[2019-07-21] MEDS: HYDROcodone/Acetaminophen 5/325 mg Tablet PO PRN ×2 (03:14→21:04)
[2019-07-21 04:57] LABS: Digoxin 0.84 ng/mL (0.8-2.0)
[2019-07-21 05:06] LABS: Anion Gap 14 mmol/L (10-20); BUN (Urea Nitrogen) 32 mg/dL (9.8-20.1); Calc. Creatinine Clearance 93 mL/min (70-130); Calcium 8.8 mg/dL (7.8-10.44); Carbon Dioxide 24 mmol/L (23-31); Chloride 101 mmol/L (98-107); Estimated GFR-MDRD 42; Glucose 250 mg/dL (83-110); Magnesium 2.6 mg/dL (1.6-2.6); Potassium 3.9 mmol/L (3.5-5.1); Sodium 135 mmol/L (136-145)
[2019-07-21] MEDS: Levothyroxine Sodium 25 MCG TAB PO SCH (05:24)
[2019-07-21] MEDS: Cepastat Lozenges 1 LOZ PO PRN ×2 (05:26→16:48)
[2019-07-21 09:00] LABS: INR-International Normal Ratio 2.9; Prothrombin Time 30.4 sec (12.0-14.7)
[2019-07-21] MEDS ORDERED: Digoxin 0.125 MG TAB PO SCH (09:00)
[2019-07-21] MEDS: Digoxin 0.125 MG TAB PO SCH (09:49)
[2019-07-21] MEDS: Gabapentin 300 MG CAP PO SCH ×3 (09:49→21:05)
[2019-07-21] MEDS: HumaLOG 300 UNITS/3 ML VIAL SC SCH ×3 (09:50→16:52)
[2019-07-21] MEDS: Polyethylene Glycol 3350 17 GM Packet PO SCH (09:52)
[2019-07-21] MEDS: HumaLOG 300 UNITS/3 ML VIAL SC PRN ×4 (09:52→21:07)
--- NOTE | 2019-07-21 09:52 | RAD ---
PORTABLE CHEST: DATE: 07/21/2019. PROVIDED CLINICAL HISTORY: Shortness of breath. FINDINGS: Comparison 07/17/2019. Evaluation is limited by patient body habitus. Cardiac silhouette is unchanged in appearance. Prominence of the pulmonary vasculature and pulmonary interstitium. No focal consol idation, pleural fluid, or pneumothorax apparent. IMPRESSION: Findings possibly reflecting congestive failure. POS: ARIAN
[2019-07-21] MEDS ORDERED: Furosemide 20 MG TAB PO SCH (14:00)
[2019-07-21] MEDS: Furosemide 40 MG/4 ML VIAL SLOW IVP SCH (14:28)
--- NOTE | 2019-07-21 14:57 | PRG ---
DATE OF SERVICE: 07/21/2019 SUBJECTIVE: Ms. eFrnandez is breathing better today. She has been on intravenous Lasix. OBJECTIVE: VITAL SIGNS: Her blood pressure earlier was 150 systolic, now it is 120; pulse is improved, it is in the mid 80s. LUNGS: Clear. CARDIAC: Irregular. ABDOMEN: Obese and nontender. EXTREMITIES: Still [id number] edema. ASSESSMENT: 1. Diastolic congestive heart failure. 2. Atrial fibrillation. 3. Volume overload. PLAN: 1. Continue diuretics. 2. Heart rate was controlled on medications. Dr. Guerrero will resume care tomorrow. Job ID: [id number]
[2019-07-21] MEDS: Warfarin Sodium 3 MG TAB PO SCH (16:49)
[2019-07-21] MEDS ORDERED: Insulin Glargine 20 UNITS in Pre-Filled Syringe 1 EACH SC SCH (21:00)
--- NOTE | 2019-07-21 21:59 | PDOC.HOSPP ---
- Subjective Encounter Date: 07/21/19 Encounter Time: 09:00 Subjective: no overnight events. this morning, endorses improvement in breathing though remains short of breath on mild exertion. Also endorses improvement in pain in b /l LE. otherwise no complaints. - Objective Vital Signs & Weight: Vital Signs (12 hours) Temp Pulse Resp BP Pulse Ox 07/21/19 20:50 98.2 F 85 18 138/65 97 07/21/19 16:50 97.3 F L 89 16 133/63 95 07/21/19 11:40 97.5 F L 85 16 127/61 98 Weight Admit Weight 337 lb 12.8 oz Weight 340 lb 1.6 oz I&O: 07/20/19 07/21/19 07/22/19 06:59 06:59 06:59 Intake Total 9895 862 1913 Output Total 1500 251 Balance -468 163 3034 Result Diagrams: 07/20/19 06:45 07/21/19 04:10 Additional Labs: Accuchecks 07/21/19 07/21/19 07/21/19 20:26 16:25 10:44 POC Glucose 306 H 297 H 350 H 07/21/19 05:58 POC Glucose 241 H Hospitalist ROS - Review of Systems Constitutional: denies: fever, chills, sweats, weakness, malaise, other Respiratory: reports: SOB with excertion. denies: cough, dry, shortness of breath, hemoptysis, pleuritic pain, sputum, wheezing, other Cardiovascular: reports: orthopnea, paroxysmal noc. dyspnea, edema. denies: chest pain, palpitations, light headedness, other Gastrointestinal: denies: nausea, vomiting, abdominal pain, diarrhea, constipation, melena, hematochezia, other - Medication Medications: Active Medications Generic Name Dose Route Start Last Admin Trade Name Freq PRN Reason Stop Dose Admin Hydrocodone Bitart/Acetaminophen 1 tab 07/18/19 00:15 07/21/19 03:14 [place] 5/325 PO 1 tab Q4H PRN Administration Moderate Pain (4-6) Digoxin 0.125 mg 07/20/19 09:00 07/21/19 09:49 Lanoxin PO 0.125 mg DAILY SUNDAY Administration Diltiazem HCl 30 mg 07/19/19 17:00 07/21/19 16:48 Cardizem PO 30 mg ACHS SUNDAY Administration Furosemide 40 mg 07/21/19 14:00 07/21/19 14:28 Lasix SLOW IVP 40 mg 0600,1400 SUNDAY Administration Gabapentin 300 mg 07/18/19 21:00 07/21/19 14:28 Neurontin PO 300 mg TID SUNDAY Administration Guaifenesin/Dextromethorphan 15 ml 07/18/19 00:15 07/20/19 14:54 Robitussin Dm PO 15 ml Q4H PRN Administration Cough Insulin Human Lispro 0 units 07/18/19 00:15 07/21/19 16:52 Humalog SC 6 unit .MODERATE SLIDING SC PRN Administration Moderate Correctional Scale Insulin Human Lispro 0 units 07/20/19 21:22 07/20/19 22:08 Humalog SC 3 unit .BEDTIME SLIDING SC PRN Administration Bedtime Correctional Scale Insulin Human Lispro 7 units 07/21/19 17:00 07/21/19 16:52 Humalog SC 7 unit TID-WM SUNDAY Administration Levothyroxine Sodium 25 mcg 07/19/19 06:00 07/21/19 05:24 Synthroid PO 25 mcg 0600 SUNDAY Administration Morphine Sulfate 2 mg 07/18/19 00:13 07/18/19 02:57 Morphine SLOW IVP 2 mg Q4H PRN Administration severe pain 4-10 Pantoprazole Sodium 40 mg 07/18/19 09:00 07/21/19 09:49 Protonix PO 40 mg DAILY SUNDAY Administration Polyethylene Glycol 17 gm 07/18/19 09:00 07/21/19 09:52 Miralax PO Not Given DAILY SUNDAY Sodium Chloride 10 ml 07/18/19 09:00 07/21/19 09:50 Flush - Normal Saline IVF 10 ml Q12HR SUNDAY Administration Throat Lozenges 1 sarahy 07/20/19 10:16 07/21/19 16:48 Cepastat Lozenges PO 1 sarahy Q2H PRN Administration Sore Throat Tramadol HCl 50 mg 07/18/19 16:48 07/18/19 17:34 Ultram PO 50 mg Q6H PRN Administration Pain 4-6 Triamcinolone Acetonide 0 gm 07/20/19 21:00 07/21/19 14:32 Kenalog 0.1% Ointment TOP 1 applic TID SUNDAY Administration Warfarin Sodium 6 mg 07/18/19 17:00 07/21/19 16:49 Coumadin PO 6 mg DAILY@1700 [facility] Administration - Exam General Appearance: NAD, awake alert Neck: no JVD Heart: RRR, no murmur, no gallops, no rubs Respiratory: CTAB, no wheezes, no ronchi Respiratory - other findings: bibasilar inspiratory rales Gastrointestinal: soft, non-tender, non-distended, normal bowel sounds Extremities: 2+ LE edema Extremities - other findings: severe stasis dermatitis with oozing of clear fluid Psychiatric: normal affect, normal behavior, A&O x 3 Hosp A/P - Plan HFpEF - hypervolumic, increased lasix to 40mg IVP bid Stasis dermatitis - started moderate dose topical steroids, responded to treatment; stop vanc Throat pain- resolved ELOS: 1-2 midnights
[2019-07-22 05:30] LABS: #Eosinphils 0.2 thou/uL (0.0-0.7); #Lymphocytes 0.8 thou/uL (1.20-3.40); #Neutrophils 5.8 thou/uL (1.40-6.50); %Basophils 0.3 % (0.0-1.0); %Eosinophils 2.1 % (0.0-10.0); %Lymphocytes 10.4 % (21.0-51.0); %Monocytes 13.1 % (0.0-10.0); Hemoglobin 10.6 g/dL (12.0-16.0); Mean Corpuscular HGB CONC 32.6 g/dL (32.0-36.0); Mean Corpuscular Hemoglobin 29.4 pg (27.0-31.0); Mean Corpuscular Volume 90.4 fL (78.0-98.0); Mean Platelet Volume 8.3 fL (7.4-10.4); Platelet Count 210 thou/uL (130-400); RBC Distribution Width 14.8 % (11.5-14.5); White Blood Cell (WBC) Count 7.9 thou/uL (4.8-10.8)
[2019-07-22 05:36] LABS: INR-International Normal Ratio 3.3
[2019-07-22 05:42] LABS: Anion Gap 13 mmol/L (10-20); BUN (Urea Nitrogen) 36 mg/dL (9.8-20.1); Calc. Creatinine Clearance 91 mL/min (70-130); Calcium 8.5 mg/dL (7.8-10.44); Carbon Dioxide 23 mmol/L (23-31); Chloride 100 mmol/L (98-107); Estimated GFR-MDRD 41; Glucose 239 mg/dL (83-110); Magnesium 2.6 mg/dL (1.6-2.6); Potassium 4.2 mmol/L (3.5-5.1); Sodium 132 mmol/L (136-145)
[2019-07-22] MEDS: Furosemide 40 MG/4 ML VIAL SLOW IVP SCH (05:42)
[2019-07-22] MEDS: Levothyroxine Sodium 25 MCG TAB PO SCH (05:42)
[2019-07-22] MEDS: Digoxin 0.125 MG TAB PO SCH (08:06)
[2019-07-22] MEDS: Gabapentin 300 MG CAP PO SCH ×3 (08:06→21:24)
[2019-07-22] MEDS: HumaLOG 300 UNITS/3 ML VIAL SC SCH ×3 (08:07→16:53)
[2019-07-22] MEDS: Polyethylene Glycol 3350 17 GM Packet PO SCH (08:07)
[2019-07-22] MEDS: Furosemide 100 MG/10 ML VIAL SLOW IVP SCH (14:16)
--- NOTE | 2019-07-22 14:24 | PRG ---
DATE OF SERVICE: 07/22/2019 SUBJECTIVE: Ms. Fernandez is doing much better today. Her rate is controlled off IV Cardizem. She is currently on 120 mg short-acting over 24 hours. She is currently off antibiotic therapy. She continues Coumadin with INR of 3.3. OBJECTIVE: VITAL SIGNS: Blood pressure 159/70, pulse 81, and temperature 98. LUNGS: Clear to auscultation. HEART: Irregularly irregular. ABDOMEN: Soft, nontender, and nondistended. EXTREMITIES: 2+ pitting edema. 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 IMPRESSION: 1. Atrial fibrillation. 2. Chronic stasis dermatitis. 3. Obesity. RECOMMENDATIONS: 1. Switch short-acting Cardizem to long-acting Cardizem. 2. Counseled on weight loss to improve on her central venous hypertension. 3. Recommend INR between 2 and 3. 4. Plan is to follow up as an outpatient in 1 to 2 weeks. Job ID: [id number]
[2019-07-22] MEDS ORDERED: Warfarin Sodium 5 MG TAB PO SCH (17:00)
--- NOTE | 2019-07-22 17:31 | PDOC.HOSPP ---
- Subjective Encounter Date: 07/22/19 Encounter Time: 08:00 Subjective: no overnight events. This morning, feels better overall, legs less painful and swollen, breathing improved but still requires oxygen and becomes short of breath with mild exertion. - Objective Vital Signs & Weight: Vital Signs (12 hours) Temp Pulse Resp BP BP Pulse Ox 07/22/19 16:07 98.0 F 80 17 131/56 L 95 07/22/19 11:24 98.0 F 81 20 159/70 H 95 07/22/19 08:06 83 99 07/22/19 07:51 97.9 F 83 20 136/62 99 Weight Admit Weight 337 lb 12.8 oz Weight 336 lb 12.8 oz I&O: 07/21/19 07/22/19 07/23/19 06:59 06:59 06:59 Intake Total 905 1830 Output Total 251 600 Balance 654 1230 Result Diagrams: 07/22/19 04:56 07/22/19 04:56 Additional Labs: Accuchecks 07/22/19 07/22/19 07/22/19 16:49 10:48 08:30 POC Glucose 304 H 325 H 293 H 07/22/19 07/21/19 05:55 20:26 POC Glucose 242 H 306 H Hospitalist ROS - Review of Systems Constitutional: denies: fever, chills, sweats, weakness, malaise, other Respiratory: reports: shortness of breath, SOB with excertion. denies: cough, dry, hemoptysis, pleuritic pain, sputum, wheezing, other Cardiovascular: denies: chest pain, palpitations, orthopnea, paroxysmal noc. dyspnea, edema, light headedness, other Gastrointestinal: denies: nausea, vomiting, abdominal pain, diarrhea, constipation, melena, hematochezia, other Skin: reports: rash - Medication Medications: Active Medications Generic Name Dose Route Start Last Admin Trade Name Freq PRN Reason Stop Dose Admin Hydrocodone Bitart/Acetaminophen 1 tab 07/18/19 00:15 07/21/19 21:04 [place] 5/325 PO 1 tab Q4H PRN Administration Moderate Pain (4-6) Digoxin 0.125 mg 07/20/19 09:00 07/22/19 08:06 Lanoxin PO 0.125 mg DAILY SUNDAY Administration Diltiazem HCl 30 mg 07/19/19 17:00 07/22/19 16:53 Cardizem PO 07/23/19 00:00 30 mg ACHS SUNDAY Administration Furosemide 80 mg 07/22/19 14:00 07/22/19 14:16 Lasix SLOW IVP 80 mg 0600,1400 SUNDAY Administration Gabapentin 300 mg 07/18/19 21:00 07/22/19 14:16 Neurontin PO Not Given TID SUNDAY Guaifenesin/Dextromethorphan 15 ml 07/18/19 00:15 07/20/19 14:54 Robitussin Dm PO 15 ml Q4H PRN Administration Cough Insulin Glargine 20 units/ 0.2 mls @ 0 mls/hr 07/21/19 21:00 07/21/19 21:04 Miscellaneous Medication SC 0.2 mls HS SUNDYA Administration As Directed Insulin Human Lispro 0 units 07/18/19 00:15 07/21/19 16:52 Humalog SC 6 unit .MODERATE SLIDING SC PRN Administration Moderate Correctional Scale Insulin Human Lispro 0 units 07/20/19 21:22 07/21/19 21:07 Humalog SC 4 unit .BEDTIME SLIDING SC PRN Administration Bedtime Correctional Scale Insulin Human Lispro 7 units 07/21/19 17:00 07/22/19 16:53 Humalog SC 7 unit TID-WM SUNDAY Administration Levothyroxine Sodium 25 mcg 07/19/19 06:00 07/22/19 05:42 Synthroid PO 25 mcg 0600 SUNDAY Administration Morphine Sulfate 2 mg 07/18/19 00:13 07/18/19 02:57 Morphine SLOW IVP 2 mg Q4H PRN Administration severe pain 4-10 Pantoprazole Sodium 40 mg 07/18/19 09:00 07/22/19 08:06 Protonix PO 40 mg DAILY SUNDAY Administration Polyethylene Glycol 17 gm 07/18/19 09:00 07/22/19 08:07 Miralax PO Not Given DAILY SUNDAY Sodium Chloride 10 ml 07/18/19 09:00 07/22/19 08:07 Flush - Normal Saline IVF 10 ml Q12HR SUNDAY Administration Throat Lozenges 1 sarahy 07/20/19 10:16 07/21/19 16:48 Cepastat Lozenges PO 1 sarahy Q2H PRN Administration Sore Throat Tramadol HCl 50 mg 07/18/19 16:48 07/18/19 17:34 Ultram PO 50 mg Q6H PRN Administration Pain 4-6 Triamcinolone Acetonide 0 gm 07/20/19 21:00 07/22/19 14:16 Kenalog 0.1% Ointment TOP 1 applic TID SUNDAY Administration - Exam General Appearance: NAD, awake alert Heart: RRR, no murmur, no gallops, no rubs Respiratory: CTAB, no wheezes, no ronchi Respiratory - other findings: bibasilar rales Gastrointestinal: soft, non-tender, non-distended, normal bowel sounds Extremities: 2+ LE edema Extremities - other findings: stasis dermatitis improving Psychiatric: normal affect, normal behavior, A&O x 3 Hosp A/P - Plan HFpEF - hypervolumic, positive I/O, increased lasix to 80mg IVP bid; arrange home oxygen since family requests only [place] home, has [facility] Stasis dermatitis - started moderate dose topical steroids, responded to treatment; Throat pain- resolved DC 07/22
[2019-07-22] MEDS ORDERED: Insulin Glargine 25 UNITS in Pre-Filled Syringe 1 EACH SC SCH (21:00)
[2019-07-22] MEDS: HumaLOG 300 UNITS/3 ML VIAL SC PRN (21:24)
[2019-07-22] MEDS: HYDROcodone/Acetaminophen 5/325 mg Tablet PO PRN (21:32)
[2019-07-23 04:28] LABS: INR-International Normal Ratio 2.9; Prothrombin Time 30.2 sec (12.0-14.7)
[2019-07-23] MEDS: Levothyroxine Sodium 25 MCG TAB PO SCH (05:07)
[2019-07-23] MEDS: Furosemide 100 MG/10 ML VIAL SLOW IVP SCH ×2 (05:07→16:29)
[2019-07-23] MEDS: HumaLOG 300 UNITS/3 ML VIAL SC PRN ×2 (06:32→12:23)
[2019-07-23] MEDS: Digoxin 0.125 MG TAB PO SCH (08:31)
[2019-07-23] MEDS: HumaLOG 300 UNITS/3 ML VIAL SC SCH ×2 (08:32→12:23)
[2019-07-23] MEDS: Gabapentin 300 MG CAP PO SCH ×2 (08:32→16:28)
[2019-07-23] MEDS: Polyethylene Glycol 3350 17 GM Packet PO SCH (08:33)
[2019-07-23 12:56] VITALS: BMI 47.0
[2019-07-23 16:19] VITALS: BP 140/63; TEMP 98.4
--- NOTE | 2019-07-24 09:54 | DIS ---
DATE OF ADMISSION: 07/18/2019 DATE OF DISCHARGE: 07/23/2019 HOSPITAL COURSE: Ms. Fernandez is a 78-year-old female with a medical history of heart failure with preserved ejection fraction, atrial fibrillation, diabetes, hypothyroidism as in low, who presented with bilateral lower extremity rash and shortness of breath. She was diagnosed with acute on chronic heart failure with preserved ejection fraction, stasis dermatitis, and atrial fibrillation with RVR. The patient's heart rate was well controlled after starting on Cardizem and decompensated heart failure improved with aggressive diuresis. As for the bilateral lower extremity rash, initially was treated as cellulitis, but did not significantly improve. Upon transition to topical steroids, rash promptly improved. PHYSICAL EXAMINATION: VITAL SIGNS: Blood pressure 140/63, pulse 79, respiratory rate 16, oxygen saturation 97% on room air. However, on mild exertion, the patient desaturates to below 88%, so required home oxygen. Temperature 98.4. GENERAL: Lying comfortably in bed. No apparent distress. HEART: Regular rate and rhythm. No murmur. No gallops. No rubs. RESPIRATORY: Clear to auscultation bilaterally. No wheezes, no rhonchi. Bibasilar rales. GASTROINTESTINAL: Soft, nontender, nondistended. Normal bowel sounds. EXTREMITIES: +2 lower extremity edema. Stasis dermatitis that is improving. PSYCHIATRIC: Normal affect, normal behavior. Alert and oriented x3. DISCHARGE MEDICATIONS: New medications: 1. Digoxin. 2. Diltiazem. 3. Triamcinolone. Continued medications: 1. Metformin. 2. Gabapentin. 3. Linaclotide. 4. Ropinirole. 5. Tramadol. 6. Fish oil. 7. Levothyroxine. 8. Vitamin D3. 9. Senna/docusate. 10. Magnesium oxide. 11. MiraLAX. 12. Warfarin 6 mg daily. 13. Levemir. 14. Aspart. 15. Zofran. 16. Acetaminophen. 17. Potassium. Change medications: 1. Torsemide was increased from 60 mg daily to 60 mg bi-daily to continue diuresis as an outpatient. The patient was advised to see her primary care physician regarding reduction of the dose upon approval. Discontinued medications: 1. Spironolactone. 2. Metoprolol tartrate. Job ID: [id number]
--- NOTE | 2019-07-25 16:35 | EKG ---
Test Reason : Blood Pressure : / mmHG Vent. Rate : 085 BPM Atrial Rate : 075 BPM P-R Int : 000 ms QRS Dur : 088 ms QT Int : 410 ms P-R-T Axes : 000 000 022 degrees QTc Int : 487 ms Atrial fibrillation Abnormal ECG Confirmed by JOSE BLOCK [id number]), food editor ALPHONSE HODGSON ([id number] on 07/25/2019 4:34:28 PM Referred By: Confirmed By:JOSE BLOCK
== END 2019-07-23 17:13 | DRG 602 ==
LOC: ERS 23:02 → 2NO 07-18 00:55
PROVIDERS: ADMIT Internal Medicine; ATTEND Internal Medicine
DX: L03.115 Cellulitis of right lower limb (principal); I50.33 Acute on chronic diastolic (congestive) heart failure; I13.0 Hypertensive heart and chronic kidney disease with heart failure and stage 1 through stage 4 chronic kidney disease, or unspecified chronic kidney disease; I48.20 Chronic atrial fibrillation, unspecified; Z68.42 Body mass index [BMI] 45.0-49.9, adult; E78.5 Hyperlipidemia, unspecified; I08.1 Rheumatic disorders of both mitral and tricuspid valves; L03.116 Cellulitis of left lower limb; I87.2 Venous insufficiency (chronic) (peripheral); I25.10 Atherosclerotic heart disease of native coronary artery without angina pectoris; E66.01 Morbid (severe) obesity due to excess calories; E11.22 Type 2 diabetes mellitus with diabetic chronic kidney disease; J02.9 Acute pharyngitis, unspecified; E87.70 Fluid overload, unspecified; N18.3 Chronic kidney disease, stage 3 (moderate); E03.9 Hypothyroidism, unspecified; Z79.01 Long term (current) use of anticoagulants; Z98.42 Cataract extraction status, left eye; Z98.41 Cataract extraction status, right eye; Z98.51 Tubal ligation status; Z90.49 Acquired absence of other specified parts of digestive tract; Z79.4 Long term (current) use of insulin
CPT/HCPCS: 36415; 36416; 71045; 80048; 80162; 80202; 83605; 83735; 83880; 84484; 85025; 85610; 93005; 93306; 93798; 96365; J1815; J1940; J2270; J3370; J3490